=== PATIENT | male | born 1975 | race Caucasian/White ===

== ENCOUNTER 2016-11-21 12:58 | Emergency (ER) | payer OTHER, SELFPAY ==
[2016-11-21] MEDS ORDERED: HYDROmorphone 1 MG/ML Syringe IVPUSH ONE ×2 (13:05→16:03)
[2016-11-21] MEDS ORDERED: Metoclopramide 10 MG/2 ML SDV IVPUSH ONE (13:05)
[2016-11-21] MEDS ORDERED: Diphtheria,Pertussis(Acell),Tetanus Vaccine 0.5 ML SDV inactive IM ONE (13:08)
[2016-11-21 13:09] VITALS: BP 120/82
--- NOTE | 2016-11-21 13:09 | EDM.PDOC ---
ED HPI Trauma - General Chief Complaint: Trauma Stated Complaint: [facility] Time Seen by Provider: 11/21/16 13:04 Source: Reports: Patient, EMS History Limitations: Reports: No limitations - History of Present Illness INITIAL COMMENTS - FREE TEXT/NARRATIVE: 41-year-old male presents the ED per ambulance after slipping and falling outside his apartment here in [place]. He states he is a violent twisting injury to his left lower ankle causing him to fall to the ground landing hard on his buttock. He can remember feet fell with his left leg underneath him. He appreciated that his left foot was deviated laterally and he grabbed and pushed it back into place. However on attempts to stand he can tell that his ankle is broken as it is unstable and moving all over the place would not hold his weight. Currently pain is 9-10. He denies his head or any loss of consciousness. Denies knocking the wind out of himself. He has no other injuries. Arrives in the ED per ambulance in the long leg blue foam splint. He does have a superficial abrasion to the right lateral dorsal ankle. Not sure when his last tetanus vaccination was received. Symptom Onset Date: 11/21/16 Symptom Onset Time: 12:30 Occurred When: just prior to arrival Occurred Where: other (slipped on ice outside his apartment.) Method of Injury: fall Severity: severe Pain/Injury Location: Reports: lower extremity, left Consciousness: Reports: no loss of consciousness, remembers incident, remembers coming to hosp Associated Symptoms: Reports: no other symptoms Allergies/ADRs: Allergies marijuana Allergy (Verified 11/21/16 13:05) Swelling Home Medications: Ambulatory Orders . 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 Has not had a cigarette now for 3 days.) Tobacco Use Within Last Twelve Months: Cigarettes Years of Tobacco use: 24 - Alcohol Use Alcohol Use History: Yes Days Per Week of Alcohol Use: 2 (usually just on weekends.) - Recreational Drug Use Recreational Drug Use: No Drug Use in Last 12 Months: No Other Recreational Drug Type: patient has been sober/clean x5 years. Review of Systems - Review of Systems Review Of Systems: See Below Constitutional: Denies: chills, diaphoresis, fever, weakness Eyes: Reports: no symptoms Ears: Reports: no symptoms Nose: Reports: no symptoms Mouth/Throat: Reports: no symptoms Respiratory: Reports: no symptoms Cardiovascular: Reports: no symptoms GI/Abdominal: Reports: No symptoms Genitourinary: Reports: no symptoms Musculoskeletal: Reports: joint pain (chronic positive right knee pain.) Skin: Reports: no symptoms Neurological: Reports: no symptoms Psychiatric: Reports: no symptoms Trauma Exam - Physical Exam Exam: See Below Exam Limited By: No limitations General Appearance: Reports: alert, moderate distress Head: Denies: atraumatic Eyes: bilateral eye: normal inspection Throat/Mouth: Reports: Normal inspection, Normal lips, Normal teeth, Normal oropharynx Neck: Reports: non-tender, full range of motion, normal alignment, normal inspection Respiratory Exam: Reports: no respiratory distress, lungs clear, normal breath sounds, no accessory muscle use, chest non-tender Cardiovascular: Reports: normal peripheral pulses, regular rate, rhythm, no edema, no gallop, no JVD, no murmur GI/Abdominal: Reports: normal bowel sounds, soft, non tender, no organomegaly, other (no surgical scars) (Male) Exam: No hernia Back: Reports: full range of motion, normal inspection. Denies: CVA tenderness (R), CVA tenderness (L) Extremities: Reports: tenderness (of note he has some tenderness along the medial proximal right leg and extensive are causing these evidence along the posterior medial leg on the right side.), other (no injury to the right lower extremity appreciated. He does have increased movement an anterior posterior drawer sign suggesting previous tear of his anterior cruciate ligament in the right knee. At present the left knee is within normal limits without contusion or abrasion. Nominal patellofemoral movement. No true knee joint effusion. No pain on compression of the proximal tib-fib. He has an abrasion to the lateral aspect of his dorsal right foot that is partially 2 cm in length and 1 cm in width. There is deformity of both the lateral and medial malleoli clinically. He can feel bony crepitus just on any movement that trying to dorsiflex the foot. Likely suspect a bimalleolar or trimalleolar fracture.) Neurologic: Reports: no motor/sensory deficits, alert, normal mood/affect, oriented x 3 Skin: Reports: Normal color, Warm/dry - Ryan Coma Score Best Eye Response ([place]): (4) open spontaneously Best Verbal Response ([place]): (5) oriented Best Motor Response (Ryan): (6) obeys commands Ryan Total: 15 Course - Vital Signs Last Recorded V/S: Last Vital Signs Temp 36.3 C 11/21/16 13:05 Pulse 78 11/21/16 13:05 Resp 12 11/21/16 13:05 BP 120/82 11/21/16 13:05 Pulse Ox 95 11/21/16 13:05 - Orders/Labs/Meds Orders: Active Orders 24 hr Category Date Time Status Vaccines to be Administered [RC] PER UNIT ROUTINE Care 11/21/16 13:08 Active Ankle wo Cont Lt [CT] Stat Exams 11/21/16 13:55 Taken Tibia Fibula Lt [CR] Stat Exams 11/21/16 13:05 Taken Sodium Chloride 0.9% [Normal Saline] 1,000 ml Med 11/21/16 13:15 Active IV ASDIRECTED Medication Orders Sodium Chloride (Normal Saline) 1,000 mls @ 150 mls/hr IV ASDIRECTED NERY Last Admin: 11/21/16 13:15 Dose: 150 mls/hr Labs: Laboratory Tests 11/21/16 11/21/16 Range/Units 14:12 14:12 WBC 5.31 (4.23-9.07) K/mm3 RBC 4.34 L (4.63-6.08) M/mm3 Hgb 13.8 (13.7-17.5) gm/L Hct 41.3 (40.1-51.0) % MCV 95.2 H (79.0-92.2) fl MCH 31.8 (25.7-32.2) pg MCHC 33.4 (32.2-35.5) g/dl RDW Std Deviation 42.1 (35.1-43.9) fL Plt Count 157 L (163-337) K/mm3 MPV 10.8 (9.4-12.3) fl Neutrophils % (Manual) 69 H (40-60) % Band Neutrophils % 0 (0-10) % Lymphocytes % (Manual) 27 (20-40) % Atypical Lymphs % 0 % Monocytes % (Manual) 2 (2-10) % Eosinophils % (Manual) 1 (0.8-7.0) % Basophils % (Manual) 1 (0.2-1.2) Platelet Estimate Adequate RBC Morph Comment Normal Sodium 140 (136-145) mEq/L Potassium 3.8 (3.5-5.1) mEq/L Chloride 105 (98-107) mEq/L Carbon Dioxide 26 (21-32) mEq/L Anion Gap 12.8 (5-15) BUN 11 (7-18) mg/dL Creatinine 1.0 (0.7-1.3) mg/dL Est Cr Clr Drug Dosing 121.76 mL/min Estimated GFR (MDRD) > 60 (>60) mL/min BUN/Creatinine Ratio 11.0 L (14-18) Glucose 113 H (74-106) mg/dL Calcium 8.5 (8.5-10.1) mg/dL Total Bilirubin 0.3 (0.2-1.0) mg/dL AST 94 H (15-37) U/L ALT 132 H (16-63) U/L Alkaline Phosphatase 76 (46-116) U/L Total Protein 7.0 (6.4-8.2) g/dl Albumin 3.7 (3.4-5.0) g/dl Globulin 3.3 gm/dL Albumin/Globulin Ratio 1.1 (1-2) Meds: Medications Generic Name Dose Route Start Last Admin Trade Name Freq PRN Reason Stop Dose Admin Sodium Chloride 1,000 mls @ 150 mls/hr 11/21/16 13:15 11/21/16 13:15 Normal Saline IV 150 mls/hr ASDIRECTED NERY Administration Discontinued Medications Generic Name Dose Route Start Last Admin Trade Name Freq PRN Reason Stop Dose Admin Diphtheria/Tetanus/Acell Pertussis 0.5 ml 11/21/16 13:08 11/21/16 13:27 Boostrix IM 11/21/16 13:09 0.5 ml .ONCE ONE Administration Hydromorphone HCl 1 mg 11/21/16 13:05 11/21/16 13:11 Dilaudid IVPUSH 11/21/16 13:06 1 mg ONETIME ONE Administration Metoclopramide HCl 10 mg 11/21/16 13:05 11/21/16 13:10 Reglan IVPUSH 11/21/16 13:06 10 mg ONETIME ONE Administration - Radiology Interpretation Free Text/Narrative:: 41-year-old male arrives in the ED per ambulance after slipping and falling on the ice outside of his home about 12:30 PM today. Patient reports that his ankle was deformed and he replaced it back into its normal anatomical position. He's aware of joint crepitus in the ankle. Unable to weight-bear. Exam reveals swelling both lateral and medial malleoli suggesting bilateral fracture. Plan IV will be started normal saline 150 mils per hour. Given Dilaudid 1 mg IV with Reglan 10 mg IV for pain relief. X-rays of the tib-fib and ankle to be done. - Re-Assessments/Exams Free Text/Narrative Re-Assessment/Exam: 11/21/16 13:54x-rays of the tib-fib reveal a spiral fracture of the distal shaft of the fibula. Medial malleolus is fractured as well and there appears to be a fracture of the superior body of the tail is as well. Going to have a CT scan of the ankle performed. 11/21/16 15:34CT reveals the other fractured fragment is comminuted from the base of the tibia itself. The tail is appears intact. There is a small avulsion fracture off the medial malleolus of the tibia. Spiral fracture of the fibula as noted on plain films. This is going to require orthopedic surgical management and we do not have orthopedic surgery available until later this week. Dr. Corrales was not back until the .therefore was able to be per Dr. White orthopedic surgeon on-call at [facility] and he has accepted care of this patient. He'll be sent by ground ambulance. Current splint will be left in place. 11/21/16 15:38l Labs revealed a normal white count of 5.31 with 69% neutrophils and no bands. Hemoglobin is 13.8 hematocrit of 41.3 platelets 157,000. Chemistry is essentially normal. He is mildly elevated AST at 94 ALT of 132. Unclear if this is due to fatty liver disease or alcohol use. Departure - Departure Time of Disposition: 15:36 Disposition: DC/Tfer to Acute Hospital 02 Condition: fair Clinical Impression: Closed bimalleolar fracture Referrals: PCP,None [Primary Care Provider] - - My Orders Last 24 Hours: My Active Orders 11/21/16 13:05 Tibia Fibula Lt [CR] Stat 11/21/16 13:08 Vaccines to be Administered [RC] PER UNIT ROUTINE 11/21/16 13:15 Sodium Chloride 0.9% [Normal Saline] 1,000 ml IV ASDIRECTED 11/21/16 13:55 Ankle wo Cont Lt [CT] Stat - Assessment/Plan Last 24 Hours: My Active Orders 11/21/16 13:05 Tibia Fibula Lt [CR] Stat 11/21/16 13:08 Vaccines to be Administered [RC] PER UNIT ROUTINE 11/21/16 13:15 Sodium Chloride 0.9% [Normal Saline] 1,000 ml IV ASDIRECTED 11/21/16 13:55 Ankle wo Cont Lt [CT] Stat
[2016-11-21] MEDS ORDERED: Sodium Chloride 0.9% 1,000 ML IV SCH (13:15)
--- NOTE | 2016-11-22 07:15 | CR ---
Left tibia and fibula: AP and lateral views of the left tibia and fibula were obtained. Comparison: No previous study. Slightly comminuted fracture with mild displacement seen within the distal fibular diaphysis. Displaced medial malleolar fracture is also noted. There is shifting of the tibia in a medial direction in relation to the talus compatible with unstable ankle mortise. Small fracture noted within the posterior malleolus. Diffuse soft tissue swelling is present. No proximal abnormality is seen. Impression: 1. Distal fibular shaft fracture as well as medial malleolar fracture and posterior malleolar fracture. 2. Unstable ankle mortise is noted with medial shifting of the tibia seen in relation to the talus. Diagnostic code #3
--- NOTE | 2016-11-22 08:49 | CT ---
CT left ankle Technique: Multiple axial sections through the left ankle were obtained. Reconstructed sagittal and coronal images were reviewed. Findings: Comminuted fracture noted within the distal diaphysis of the fibula. Greatest displacement is approximately 7 mm. Displaced medial malleolar fracture is seen with fracture being widened by about 7.5 mm. Shifting of the tibia in the medial direction is seen compatible with unstable ankle mortise. Small posterior malleolar fragment is seen which is mildly displaced. Talus shows no fracture. Diffuse soft tissue swelling is identified. Impression: 1. Comminuted and displaced distal fibular diaphyseal fracture. 2. Mildly displaced medial malleolar fracture as well as mildly displaced posterior malleolar fracture. 3. Unstable ankle mortise with mild shifting of the tibia in a medial direction in relation to the talus. Diagnostic code #3 MTDD
== END 2016-11-21 16:20 ==
LOC: JD.ED 12:58
DX: S82.842A Displaced bimalleolar fracture of left lower leg, initial encounter for closed fracture (principal); W01.0XXA Fall on same level from slipping, tripping and stumbling without subsequent striking against object, initial encounter; Y92.038 Other place in apartment as the place of occurrence of the external cause; F17.210 Nicotine dependence, cigarettes, uncomplicated; M25.561 Pain in right knee; Z23 Encounter for immunization; R94.5 Abnormal results of liver function studies
CPT/HCPCS: 36415; 73590; 73700; 80053; 85025; 90471; 96361; 96374; 96375; 96376; 99285; J1170; J2765; J7040; 90715

== ENCOUNTER 2016-12-23 10:36 | Emergency (ER) | payer MEDICAID, OTHER ==
[2016-12-23 10:49] VITALS: BP 168/106
[2016-12-23] MEDS ORDERED: Sodium Chloride 0.9% 10 ML Syringe FLUSH PRN (11:20)
[2016-12-23] MEDS ORDERED: HYDROmorphone 0.5 MG/0.5 ML Syringe IVPUSH ONE (11:20)
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
--- NOTE | 2016-12-23 11:45 | CR ---
Abdomen: Supine view of the abdomen was obtained. Comparison: No prior study is available. Bowel gas pattern is normal. Calcifications are seen within the pelvis likely representing phleboliths. No discrete soft tissue abnormality is seen. Bony structures are unremarkable. Impression: 1. Unremarkable supine abdominal study. Diagnostic code #1
[2016-12-23] MEDS ORDERED: Magnesium Hydroxide 400 MG/5 ML Susp 30 ML Cup PO ONE (12:39)
== END 2016-12-23 13:17 | disposition home or self-care (01) ==
LOC: JD.ED 10:36
DX: K59.00 Constipation, unspecified (principal); R79.89 Other specified abnormal findings of blood chemistry; Z79.82 Long term (current) use of aspirin; Z88.8 Allergy status to other drugs, medicaments and biological substances
CPT/HCPCS: 36415; 74000; 80053; 81001; 85025; 96374; 99284; A9270; J1170; J7050

== ENCOUNTER 2021-05-19 08:49 | Day surgery (SDC) | payer BC ==
[~2021-05-19 08:49] MED LIST: Dexamethasone 4 MG/ML 5 ML MDV ONE; Lactated Ringers 1,000 ML IV SCH; Lactated Ringers 1,000 ML ONE; Lidocaine 1% 4 ML ONE; Lidocaine 1%/Sod Bicarbonate in NS 8.4% 1 ML Syringe IDERM PRN; Midazolam 1 MG/ML 2 ML SDV ONE; Ondansetron 4 MG/2 ML SDV ONE; Propofol 200 MG/20 ML SDV ONE; Sodium Chloride 0.9% 10 ML Syringe FLUSH PRN; ceFAZolin 1 GM Vial ONE; fentaNYL 250 MCG/5 ML SDV ONE
--- NOTE | 2021-05-19 08:58 | PCM.PREANE ---
Preanesthetic Assessment - Anesthesia/Transfusion/Family Hx Anesthesia History: Prior Anesthesia Without Reaction Family History of Anesthesia Reaction: No Transfusion History: No Prior Transfusion(s) - Review of Systems General: Other (ETOH abuse, 3-4 beers per day, more on weekend, covid negative) Pulmonary: Other (quit smoking 2 weeks ago, prior 1-2 packs/day) Cardiovascular: No Symptoms Neurological: No Symptoms Other: Reports: Anxiety - Physical Assessment NPO Status Date: 05/18/21 NPO Status Time: 21:00 Weight: 122 kg ASA Class: 2 Mental Status: Alert & Oriented x3 Airway Class: Mallampati = 2 Dentition: Reports: Normal Dentition Thyro-Mental Finger Breadths: 3 Mouth Opening Finger Breadths: 3 ROM/Head Extension: Full Cardiovascular: Regular Rate, Regular Rhythm - Allergies Allergies/Adverse Reactions: Allergies Allergy/AdvReac Type Severity Reaction Status Date / Time No Known Allergies Allergy Verified 05/15/21 13:07 - Blood Blood Available: No Product(s) Available: None - Anesthesia Plan Pre-Op Medication Ordered: None - Acknowledgements Anesthesia Type Planned: MAC Pt an Appropriate Candidate for the Planned Anesthesia: Yes Alternatives and Risks of Anesthesia Discussed w Pt/Guardian: Yes Pt/Guardian Understands and Agrees with Anesthesia Plan: Yes PreAnesthesia Questionnaire - Past Health History Medical/Surgical History: Denies Medical/Surgical History HEENT History: Reports: Impaired Vision Cardiovascular History: Reports: None Respiratory History: Reports: None Gastrointestinal History: Reports: Other (See Below) Other Gastrointestinal History: inguinal hernias Genitourinary History: Reports: None 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 History: Reports: 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 Musculoskeletal History: Reports: Other (See Below) Other Musculoskeletal History: fracture left lower leg Neurological History: Reports: None Psychiatric History: Reports: Addiction Endocrine/Metabolic History: Reports: None Hematologic History: Reports: None Immunologic History: Reports: None Oncologic (Cancer) History: Reports: None Dermatologic History: Reports: None - Past Surgical History Head Surgeries/Procedures: Reports: None HEENT Surgical History: Reports: None Cardiovascular Surgical History: Reports: None Respiratory Surgical History: Reports: None GI Surgical History: Reports: None Female Surgical History: Reports: None Male Surgical History: Reports: None Endocrine Surgical History: Reports: None Neurological Surgical History: Reports: None Musculoskeletal Surgical History: Reports: ORIF Other Musculoskeletal Surgeries/Procedures:: ORIF to left lower leg. Oncologic Surgical History: Reports: None Dermatological Surgical History: Reports: None - SUBSTANCE USE Tobacco Use Status *Q: Current Every Day Tobacco User Days Per Week of Alcohol Use: 4 Number of Drinks Per Day: 8 Total Drinks Per Week: 32 Recreational Drug Use History: No - HOME MEDS Home Medications: Home Meds . [No Known Home Meds] 05/15/21 [History] - CURRENT (IN HOUSE) MEDS Current Meds: Current Medications Lactated Ringer's (Ringers, Lactated) 1,000 mls @ 125 mls/hr IV ASDIRECTED NERY Stop: 05/19/21 23:00 Lidocaine/Sodium Bicarbonate (Lidocaine 1%/Sod Bicarbonate In Ns 8.4% 1 Ml Syringe) 0.25 ml IDERM ONETIME PRN PRN Reason: Prior to IV Start Stop: 05/19/21 18:00 Sodium Chloride (Sodium Chloride 0.9% 10 Ml Syringe) 10 ml FLUSH ASDIRECTED PRN PRN Reason: Keep Vein Open Stop: 05/19/21 18:00 Discontinued Medications Cefazolin Sodium (Cefazolin 1 Gm Vial) Confirm Administered Dose 2 gm .ROUTE .STK-MED ONE Stop: 05/19/21 07:34 Dexamethasone (Dexamethasone 4 Mg/Ml 5 Ml Mdv) Confirm Administered Dose 20 mg .ROUTE .STK-MED ONE Stop: 05/19/21 07:34 Fentanyl (Fentanyl 250 Mcg/5 Ml Sdv) Confirm Administered Dose 250 mcg .ROUTE .STK-MED ONE Stop: 05/19/21 07:34 Lidocaine HCl (Xylocaine-Mpf 1%) Confirm Administered Dose 4 mls @ as directed .ROUTE .STK-MED ONE Stop: 05/19/21 07:34 Lactated Ringer's (Ringers, Lactated) Confirm Administered Dose 1,000 mls @ as directed .ROUTE .STK-MED ONE Stop: 05/19/21 07:34 Midazolam HCl (Midazolam 1 Mg/Ml 2 Ml Sdv) Confirm Administered Dose 2 mg .ROUTE .STK-MED ONE Stop: 05/19/21 07:34 Ondansetron HCl (Ondansetron 4 Mg/2 Ml Sdv) Confirm Administered Dose 4 mg .ROUTE .STK-MED ONE Stop: 05/19/21 07:34 Propofol (Propofol 200 Mg/20 Ml Sdv) Confirm Administered Dose 200 mg .ROUTE .STK-MED ONE Stop: 05/19/21 07:34 Propofol (Propofol 200 Mg/20 Ml Sdv) Confirm Administered Dose 200 mg .ROUTE .STK-MED ONE Stop: 05/19/21 08:20
[2021-05-19] MEDS ORDERED: Bupivacaine 0.5%/EPINEPHrine 1:200,000 50 ML MDV ONE (09:07)
[2021-05-19] MEDS ORDERED: Albuterol 0.083% 2.5 MG/3 ML Neb Soln NEB ONE (09:13)
[2021-05-19] MEDS ORDERED: Ketamine 500 mg/10 ML MDV ONE (09:24)
[2021-05-19] MEDS ORDERED: Ketorolac 30 MG/ML SDV ONE (09:24)
[2021-05-19] MEDS ORDERED: Midazolam 1 MG/ML 2 ML SDV ONE (09:24)
[2021-05-19] MEDS ORDERED: Propofol 200 MG/20 ML SDV ONE ×7 (09:24→10:46)
[2021-05-19] MEDS ORDERED: ceFAZolin 1 GM Vial ONE (09:29)
[2021-05-19] MEDS ORDERED: fentaNYL 250 MCG/5 ML SDV ONE (10:23)
[2021-05-19] MEDS ORDERED: fentaNYL 100 MCG/2 ML SDV IVPUSH PRN (12:05)
[2021-05-19] MEDS ORDERED: HYDROmorphone 0.5 MG/0.5 ML Syringe IVPUSH PRN (12:05)
--- NOTE | 2021-05-19 12:30 | PCM.POSTAN ---
POST ANESTHESIA ASSESSMENT - MENTAL STATUS Mental Status: Alert, Oriented - VITAL SIGNS Vital Signs: Last Vital Signs Temp 36.6 C 05/19/21 09:15 Pulse 78 05/19/21 09:15 Resp 18 05/19/21 09:15 BP 156/96 H 05/19/21 09:15 Pulse Ox 97 05/19/21 09:15 - RESPIRATORY Respiratory Status: Respiratory Rate WNL, Airway Patent, O2 Saturation Stable - CARDIOVASCULAR CV Status: Pulse Rate WNL, Blood Pressure Stable - GASTROINTESTINAL GI Status: No Symptoms - PAIN Pain Score: 2 - POST OP HYDRATION Hydration Status: Adequate & Stable
--- NOTE | 2021-05-19 12:42 | PCM.PRNOTE ---
- Free Text/Narrative Note: Date: 05/19/2021 Operation: open bilateral inguinal hernia repair Surgeon: Ruslan Bustamante MD Antibiotic: 3 g ancef IV pre-incision EBL: 10 cc DVT ppx: SCD Findings: small bilateral indirect inguinal hernias with bilateral cord lipomas Detailed Report: The patient was taken to the operating room and placed on the table in supine position. Timeout was performed and monitored anesthesia care was initiated. Abdominal hair was clipped and the lower abdomen was prepped and draped in usual sterile fashion. First, attention was turned to the left-sided inguinal hernia. The projection of the inguinal ligament was marked with a pen and 10 cc local anesthetic was injected intradermally along this line. An incision was made down to subcutaneous tissue and dissection was carried down to the external oblique aponeurotic fibers. The external inguinal ring was identified. Additional 10 cc of local anesthetic was injected deep to the aponeurotic fibers. A small stab incision was made with a scalpel and Metzenbaum scissors were used to bluntly separate the spermatic cord from the overlying roof of the inguinal canal. Scissors were then used to open the roof down towards the external ring and up towards the internal ring. Hemostats were placed on the aponeurotic leaflets and blunt dissection was used to separate the spermatic cord from surrounding tissue. A Catie drain was passed circumferentially around the spermatic cord at the level of the pubic tubercle. Blunt dissection was used to separate soft tissue from the cord, and a large cord lipoma was and resected. The hernia appeared to be a moderate sized indirect inguinal hernia with fairly shallow sac. The sac was not opened. A piece of 15 x 9 cm progrip synthetic mesh was introduced into the field and cut to size. Anchoring stitches were placed at Popeye's ligament, ensuring good medial and inferior overlap of 2 cm. The lateral edge of the mesh was sutured with running Prolene to the shelving edge of the inguinal ligament. A cut was placed in the mesh to permit passage of the spermatic cord. The internal ring was recreated by placing a single stitch at this site. A single tacking stitch was placed medially at the internal oblique, and the lateral pieces of the mesh were laid flat deep to the external oblique aponeurosis. The mesh appeared to lay in good position. The external oblique aponeurosis was then closed with running Vicryl suture. Sarah's fascia was closed with interrupted Vicryl suture and skin was closed with running subcuticular Vicryl suture. The wound was dressed with Dermabond. Next, attention was turned to repair of the right-sided inguinal hernia. The exact same dissection was performed on the right side. Again, a lipoma of the cord was identified and removed. There appeared to be a slightly smaller indirect inguinal hernia on the right side. A mesh repair was constructed identical to how the left side had been repaired. The wound was closed in standard fashion. An additional 10 cc of local anesthetic was used for regional block bilaterally at the end of the case. A total of 50 cc 0.5% Marcaine with epinephrine was used throughout the case. The patient tolerated the procedure well.
--- NOTE | 2021-05-19 13:01 | PCM48HPAN ---
Post Anesthesia Note - EVALUATION WITHIN 48HRS OF ANESTHETIC Vital Signs in Normal Range: Yes Patient Participated in Evaluation: Yes Respiratory Function Stable: Yes Airway Patent: Yes Cardiovascular Function Stable: Yes Hydration Status Stable: Yes Pain Control Satisfactory: Yes Nausea and Vomiting Control Satisfactory: Yes Mental Status Recovered: Yes Vital Signs: Last Vital Signs Temp 37.0 C 05/19/21 12:55 Pulse 70 05/19/21 12:55 Resp 18 05/19/21 12:55 BP 143/85 H 05/19/21 12:55 Pulse Ox 96 05/19/21 12:55
[2021-05-19 14:51] VITALS: BP 132/81; PULSE 67
== END 2021-05-19 14:38 | disposition home or self-care (01) ==
LOC: JD.SDS 08:49
PROVIDERS: ATTEND Surgery
DX: K40.20 Bilateral inguinal hernia, without obstruction or gangrene, not specified as recurrent (principal); D17.6 Benign lipomatous neoplasm of spermatic cord; Z98.890 Other specified postprocedural states; F17.210 Nicotine dependence, cigarettes, uncomplicated
CPT/HCPCS: 49505; C1781; J0690; J1100; J1885; J2250; J2405; J2704; J3010; J3490; J7120; 00830

== ENCOUNTER 2023-03-27 11:11 | Emergency (ER) | payer BC, MEDICAID ==
[2023-03-27 11:27] VITALS: BP 128/80; PULSE 90
== END 2023-03-27 13:40 | disposition home or self-care (01) ==
LOC: JD.ED 11:11
DX: S20.222A Contusion of left back wall of thorax, initial encounter (principal); F17.210 Nicotine dependence, cigarettes, uncomplicated; W22.8XXA Striking against or struck by other objects, initial encounter
CPT/HCPCS: 71101-26-LT; 71101-LT; 72070; 72070-26; 99282; 99283